=== PATIENT | female | born 1965 | race African-American/Black ===

== ENCOUNTER 2020-12-28 04:21 | Emergency (ER) | payer OTHER ==
[~2020-12-28] VITALS: Ht 167.6 cm; Wt 73.0 kg
[~2020-12-28 04:21] MED LIST: HYOS-27 SL; PROT40 PO
[2020-12-28 04:56] LABS: CLARITY URINE CLEAR (CLEAR); COLOR URINE YELLOW (YELLOW); KETONES URINE NEGATIVE (NEGATIVE); LEUKOCYTE ESTERASE URINE 1+ (NEGATIVE); NITRITE URINE POSITIVE (NEGATIVE); OCCULT BLOOD URINE NEGATIVE (NEGATIVE); PH URINE 5.5 (4.5-8.0); PROTEIN URINE NEGATIVE (NEGATIVE); SPECIFIC GRAVITY URINE 1.015 (1.005-1.030); UROBILINOGEN URINE 0.2 E.U./dL (0.2-1.0)
[2020-12-28 05:23] LABS: BASOPHILS % 0.7 % (0.0-2.0); HEMATOCRIT. 35.5 % (36.0-48.0); HEMOGLOBIN. 11.4 g/dL (12.0-16.0); MEAN CORPUSCULAR HEMOGLOBIN 25.8 pg (28.0-32.0); MEAN CORPUSCULAR VOLUME 80.6 fL (81.0-99.0); MEAN PLATELET VOLUME 8.6 fl (7.4-10.4); MONOCYTES % 6.1 % (2.0-8.0); NEUTROPHILS % 58.2 % (40.0-76.0); PLATELET 206 x1000/uL (130-400); RED BLOOD CELL COUNT 4.41 mill/uL (4.2-5.4)
[2020-12-28] MEDS: SODIUM CHLORIDE 0.9% 1,000 ML IV ONE (05:24)
[2020-12-28 05:29] VITALS: BP 148/86
[2020-12-28 05:29] LABS: CHLORIDE 118 mEq/L (98-107)
[2020-12-28] MEDS: MORPHINE SULFATE 4 MG/ML CPJ (NOT FOR IM USE) IV ONE (05:29)
[2020-12-28] MEDS: ONDANSETRON HCL 4MG/2ML INJ IV ONE (05:29)
[2020-12-28] MEDS: METOCLOPRAMIDE HCL 10MG/2ML VIAL IV ONE (06:13)
[2020-12-28] MEDS: DIPHENHYDRAMINE 50MG/ML VIAL IV ONE (06:13)
[2020-12-28] MEDS: CEFTRIAXONE 1 G PREMIX 50 ML IV ONE (06:14)
[2020-12-28] MEDS ORDERED: ACET650T37 MT (06:24)
[2020-12-28] MEDS ORDERED: CEPH500C2 MT (06:24)
[2020-12-28] MEDS ORDERED: TRAM50TA3 MT ×2 (06:24→06:26)
[2020-12-28] MEDS ORDERED: CYCL10TA7 MT (06:38)
== END 2020-12-28 07:20 | disposition home or self-care (01) ==
LOC: ER 04:21
DX: G43.909 Migraine, unspecified, not intractable, without status migrainosus (principal); N39.0 Urinary tract infection, site not specified; N12 Tubulo-interstitial nephritis, not specified as acute or chronic; Z88.6 Allergy status to analgesic agent; Z88.8 Allergy status to other drugs, medicaments and biological substances; Z79.899 Other long term (current) drug therapy
CPT/HCPCS: 36415; 80053; 81003; 85025; 85044; 87086; 96361; 96374; 96375; 99285; J0696; J1200; J2270; J2405; J2765; J7030

== ENCOUNTER 2021-02-28 11:00 | Emergency (ER) | payer MEDICAID, OTHER ==
[~2021-02-28] VITALS: Ht 162.6 cm; Wt 58.0 kg
[~2021-02-28 11:00] MED LIST changes: +ACET650T37 MT; +CEPH500C2 MT; +CYCL10TA7 MT
[2021-02-28] MEDS ORDERED: MORPHINE SULFATE 4 MG/ML CPJ (NOT FOR IM USE) IV STA (11:17)
[2021-02-28 11:57] LABS: BASOPHILS % 0.6 % (0.0-2.0); EOSINOPHILS % 0.3 % (0.0-5.0); LYMPHOCYTES % 21.9 % (20.0-50.0); MEAN CORPUSCULAR HEMOGLOBIN 27.8 pg (28.0-32.0); MEAN CORPUSCULAR VOLUME 84.8 fL (81.0-99.0); MEAN PLATELET VOLUME 8.7 fl (7.4-10.4); MONOCYTES % 6.1 % (2.0-8.0); NEUTROPHILS % 71.1 % (40.0-76.0); PLATELET 130 x1000/uL (130-400); RED BLOOD CELL COUNT 2.47 mill/uL (4.2-5.4); RED CELL DISTRIBUTION WIDTH 15.2 % (11.6-14.6)
[2021-02-28 12:02] LABS: CHLORIDE 125 mEq/L (98-107)
[2021-02-28 12:03] LABS: HEMOGLOBIN. 6.9 g/dL (12.0-16.0)
[2021-02-28] MEDS ORDERED: MORPHINE SULFATE 4 MG/ML CPJ (NOT FOR IM USE) IV ONE (13:00)
[2021-02-28] MEDS ORDERED: FENTANYL CITRATE/PF 50MCG/ML 2ML VIAL IV ONE (17:00)
[2021-02-28 20:00] VITALS: BP 139/73
[2021-02-28] MEDS ORDERED: ACETAMINOPHEN 325MG TABLET PO ONE (20:45)
== END 2021-02-28 20:50 | disposition short-term general hospital (02) ==
LOC: ER 11:00
DX: D57.1 Sickle-cell disease without crisis (principal); G40.909 Epilepsy, unspecified, not intractable, without status epilepticus; F32.9 Major depressive disorder, single episode, unspecified; M19.90 Unspecified osteoarthritis, unspecified site; G43.909 Migraine, unspecified, not intractable, without status migrainosus; Z20.822 Contact with and (suspected) exposure to COVID-19; Z88.6 Allergy status to analgesic agent
CPT/HCPCS: 36415; 71045; 72125; 80053; 83880; 84484; 85025; 85044; 85660; 86850; 86900; 86901; 86920; 87426; 93005; 96374; 96375; 96376; 99291; J2270; J3010; P9016

== ENCOUNTER 2021-03-22 11:53 | Emergency (ER) | payer MEDICAID, OTHER ==
[~2021-03-22] VITALS: Ht 172.7 cm; Wt 70.0 kg
[2021-03-22] MEDS ORDERED: MORPHINE SULFATE 4 MG/ML CPJ (NOT FOR IM USE) IV ONE (12:30)
[2021-03-22] MEDS ORDERED: METOCLOPRAMIDE HCL 10MG/2ML VIAL IV ONE (12:30)
[2021-03-22 12:59] LABS: BASOPHILS % 0.5 % (0.0-2.0); EOSINOPHILS % 1.6 % (0.0-5.0); HEMATOCRIT. 35.9 % (36.0-48.0); LYMPHOCYTES % 33.6 % (20.0-50.0); MEAN CORPUSCULAR HEMOGLOBIN 27.2 pg (28.0-32.0); MEAN CORPUSCULAR VOLUME 81.2 fL (81.0-99.0); MEAN PLATELET VOLUME 7.4 fl (7.4-10.4); MONOCYTES % 6.6 % (2.0-8.0); NEUTROPHILS % 57.7 % (40.0-76.0); PLATELET 310 x1000/uL (130-400); RED BLOOD CELL COUNT 4.42 mill/uL (4.2-5.4); RED CELL DISTRIBUTION WIDTH 15.3 % (11.6-14.6)
[2021-03-22 13:07] LABS: CHLORIDE 113 mEq/L (98-107)
[2021-03-22 13:08] LABS: HCG SCREEN NEGATIVE
[2021-03-22] MEDS ORDERED: MORPHINE SULFATE 4 MG/ML CPJ (NOT FOR IM USE) IV NR (15:30)
[2021-03-22 17:30] VITALS: BP 110/78
== END 2021-03-22 18:14 | disposition home or self-care (01) ==
LOC: ER 11:53
DX: R51.9 Headache, unspecified (principal); Z20.822 Contact with and (suspected) exposure to COVID-19; Z88.0 Allergy status to penicillin; Z88.8 Allergy status to other drugs, medicaments and biological substances; Z88.6 Allergy status to analgesic agent; Z79.899 Other long term (current) drug therapy; Z86.59 Personal history of other mental and behavioral disorders
CPT/HCPCS: 36415; 70450; 71045; 80053; 83880; 84484; 84703; 85025; 86850; 86900; 86901; 87426; 93005; 96374; 96375; 96376; 99285; J2270; J2765

== ENCOUNTER 2021-04-24 15:42 | Emergency (ER) | payer MEDICAID, OTHER ==
[~2021-04-24] VITALS: Ht 172.7 cm; Wt 68.5 kg
[2021-04-24] MEDS ORDERED: METHOCARBAMOL 500MG TABLET PO ONE (17:45)
[2021-04-24] MEDS ORDERED: MORPHINE SULFATE 4 MG/ML CPJ (NOT FOR IM USE) IV ONE (17:45)
[2021-04-24] MEDS ORDERED: MORPHINE SULFATE 2 MG/ML CPJ (NOT FOR IM USE) IV NR ×2 (18:50→21:53)
[2021-04-24] MEDS ORDERED: HYDROCODONE/ACETAMINOPHEN 5/325MG TABLET PO ONE (19:30)
[2021-04-24] MEDS ORDERED: CYCLOBENZAPRINE 10MG TABLET PO ONE (19:30)
[2021-04-24] MEDS ORDERED: KETOROLAC 60MG/2ML VIAL IM ONE (21:00)
[2021-04-24] MEDS ORDERED: HYDR-4001 MT (21:37)
[2021-04-24] MEDS ORDERED: CYCL10TA7 MT (21:37)
[2021-04-24 22:12] VITALS: BP 160/85
== END 2021-04-24 22:13 | disposition home or self-care (01) ==
LOC: ER 15:42
DX: M54.40 Lumbago with sciatica, unspecified side (principal); M19.90 Unspecified osteoarthritis, unspecified site; F31.9 Bipolar disorder, unspecified; G43.909 Migraine, unspecified, not intractable, without status migrainosus; R56.9 Unspecified convulsions; D57.1 Sickle-cell disease without crisis; Z88.0 Allergy status to penicillin; Z88.6 Allergy status to analgesic agent; Z88.8 Allergy status to other drugs, medicaments and biological substances
CPT/HCPCS: 72131; 96372; 96374; 96376; 99285; J1885; J2270

== ENCOUNTER 2021-08-02 09:37 | Emergency (ER) | payer MEDICAID, OTHER ==
[~2021-08-02] VITALS: Ht 172.7 cm; Wt 68.0 kg
[~2021-08-02 09:37] MED LIST changes: +HYDR-4001 MT
[2021-08-02] MEDS ORDERED: ONDANSETRON 4MG ODT PO SCH (10:17)
[2021-08-02] MEDS ORDERED: ACETAMINOPHEN 325MG TABLET PO SCH (10:17)
[2021-08-02 11:14] LABS: BASOPHILS % 0.6 % (0.0-2.0); HEMATOCRIT. 38.3 % (36.0-48.0); HEMOGLOBIN. 12.4 g/dL (12.0-16.0); LYMPHOCYTES % 28.3 % (20.0-50.0); MEAN CORPUSCULAR HEMOGLOBIN 25.6 pg (28.0-32.0); MEAN CORPUSCULAR VOLUME 78.7 fL (81.0-99.0); MEAN PLATELET VOLUME 8.4 fl (7.4-10.4); MONOCYTES % 4.4 % (2.0-8.0); NEUTROPHILS % 65.7 % (40.0-76.0); PLATELET 208 x1000/uL (130-400); RED BLOOD CELL COUNT 4.86 mill/uL (4.2-5.4); RED CELL DISTRIBUTION WIDTH 13.7 % (11.6-14.6)
[2021-08-02 11:22] LABS: CHLORIDE 113 mEq/L (98-107)
[2021-08-02] MEDS ORDERED: SUMATRIPTAN SUCCINATE 25MG TABLET PO ONE (12:00)
[2021-08-02] MEDS ORDERED: SODIUM CHLORIDE 0.9% 1,000 ML IV ONE (12:00)
[2021-08-02] MEDS ORDERED: MORPHINE SULFATE 4 MG/ML CPJ (NOT FOR IM USE) IV ONE ×2 (12:00→14:30)
[2021-08-02 14:45] VITALS: BP 159/61
== END 2021-08-02 16:02 | disposition home or self-care (01) ==
LOC: ER 09:37
DX: U07.1 COVID-19 (principal); G43.909 Migraine, unspecified, not intractable, without status migrainosus; Z88.0 Allergy status to penicillin; Z88.6 Allergy status to analgesic agent; Z88.2 Allergy status to sulfonamides; Z88.8 Allergy status to other drugs, medicaments and biological substances; Z79.899 Other long term (current) drug therapy
CPT/HCPCS: 36415; 71045; 80053; 84484; 85025; 93005; 96374; 96376; 99285; J2270; J7030; Q0162

== ENCOUNTER 2021-08-03 14:08 | Inpatient (IN) | payer OTHER ==
[~2021-08-03] VITALS: Ht 165.1 cm; Wt 67.8 kg
[2021-08-03] MEDS ORDERED: METOCLOPRAMIDE HCL 10MG/2ML VIAL IV NR (14:30)
[2021-08-03] MEDS ORDERED: ACETAMINOPHEN 325MG TABLET PO NR (14:30)
[2021-08-03] MEDS ORDERED: SODIUM CHLORIDE 0.9% 1,000 ML IV NR (14:30)
[2021-08-03] MEDS ORDERED: DIPHENHYDRAMINE 50MG/ML VIAL IV NR (14:30)
[2021-08-03] MEDS ORDERED: MORPHINE SULFATE 4 MG/ML CPJ (NOT FOR IM USE) IV ONE (15:15)
[2021-08-03 17:14] LABS: BASOPHILS % 1.6 % (0.0-2.0); EOSINOPHILS % 1.1 % (0.0-5.0); HEMATOCRIT. 40.1 % (36.0-48.0); HEMOGLOBIN. 12.5 g/dL (12.0-16.0); LYMPHOCYTES % 40.8 % (20.0-50.0); MEAN CORPUSCULAR VOLUME 79.8 fL (81.0-99.0); MEAN PLATELET VOLUME 8.1 fl (7.4-10.4); NEUTROPHILS % 48.5 % (40.0-76.0); PLATELET 227 x1000/uL (130-400); RED BLOOD CELL COUNT 5.02 mill/uL (4.2-5.4); RED CELL DISTRIBUTION WIDTH 13.9 % (11.6-14.6)
[2021-08-03] MEDS ORDERED: MORPHINE SULFATE 4 MG/ML CPJ (NOT FOR IM USE) IV NR (17:30)
[2021-08-03] MEDS ORDERED: NALOXONE HCL 0.4MG/ML VIAL IV PRN (21:15)
[2021-08-03] MEDS ORDERED: HYDROCODONE/ACETAMINOPHEN 10/325MG TABLET PO PRN (21:15)
[2021-08-03] MEDS ORDERED: MORPHINE SULFATE 2 MG/ML CPJ (NOT FOR IM USE) IV NR (21:30)
[2021-08-03] MEDS: OXYCODONE HCL/ACETAMINOPHEN 5/325MG TABLET PO PRN (21:39)
[2021-08-04] MEDS ORDERED: LORAZEPAM 2MG/ML CPJ IV PRN (00:45)
[2021-08-04] MEDS ORDERED: NALOXONE HCL 0.4MG/ML VIAL IV PRN (03:30)
[2021-08-04] MEDS: OXYCODONE HCL/ACETAMINOPHEN 5/325MG TABLET PO PRN ×2 (03:46→18:08)
[2021-08-04] MEDS: MORPHINE SULFATE 4 MG/ML CPJ (NOT FOR IM USE) IV PRN ×2 (03:47→08:25)
[2021-08-04 10:10] VITALS: BP 157/84
[2021-08-04 11:51] VITALS: BP 157/84
[2021-08-04 12:00] VITALS: BP 154/81
[2021-08-04] MEDS ORDERED: SUMA100T PO (12:23)
[2021-08-04] MEDS: FOLIC ACID 1MG TABLET PO SCH (13:44)
[2021-08-04] MEDS ORDERED: MORPHINE SULFATE 2 MG/ML CPJ (NOT FOR IM USE) IV PRN (13:54)
[2021-08-04] MEDS ORDERED: SUMATRIPTAN SUCCINATE 6MG/0.5ML VIAL SUBCUT SCH (14:00)
[2021-08-04 16:00] VITALS: BP 152/77
[2021-08-04 19:03] LABS: CHLORIDE 111 mEq/L (98-107)
[2021-08-04 20:00] VITALS: BP 146/80
[2021-08-04] MEDS: MORPHINE SULFATE 2 MG/ML CPJ (NOT FOR IM USE) IV PRN (20:08)
[2021-08-05] VITALS: BP 138/80
[2021-08-05] MEDS: OXYCODONE HCL/ACETAMINOPHEN 5/325MG TABLET PO PRN ×4 (00:42→23:09)
[2021-08-05 04:00] VITALS: BP 132/64
[2021-08-05 04:16] LABS: CLARITY URINE CLEAR (CLEAR); COLOR URINE YELLOW (YELLOW); KETONES URINE NEGATIVE (NEGATIVE); LEUKOCYTE ESTERASE URINE NEGATIVE (NEGATIVE); NITRITE URINE NEGATIVE (NEGATIVE); OCCULT BLOOD URINE NEGATIVE (NEGATIVE); PH URINE 6.5 (4.5-8.0); PROTEIN URINE NEGATIVE (NEGATIVE); SPECIFIC GRAVITY URINE 1.007 (1.005-1.030); UROBILINOGEN URINE 0.2 E.U./dL (0.2-1.0)
[2021-08-05 04:29] LABS: *AMPHETAMINES SCREEN URINE NEGATIVE (NEGATIVE); *BARBITURATES SCREEN URINE NEGATIVE (NEGATIVE); *BENZODIAZEPINES SCREEN URINE NEGATIVE (NEGATIVE); *COCAINE SCREEN URINE NEGATIVE (NEGATIVE)
[2021-08-05 04:30] LABS: CANNABINOID URINE SCREEN PRESUMTIVE POSITIVE (NEGATIVE); METHADONE URINE SCREEN NEGATIVE (NEGATIVE); OPIATES URINE SCREEN PRESUMTIVE POSITIVE (NEGATIVE); PHENCYCLIDINE URINE SCREEN NEGATIVE (NEGATIVE)
[2021-08-05] MEDS: MORPHINE SULFATE 2 MG/ML CPJ (NOT FOR IM USE) IV PRN ×2 (04:52→10:15)
[2021-08-05 08:00] VITALS: BP 158/87
[2021-08-05] MEDS ORDERED: SUMATRIPTAN SUCCINATE 6MG/0.5ML VIAL SUBCUT SCH (09:00)
[2021-08-05] MEDS: FOLIC ACID 1MG TABLET PO SCH (09:02)
[2021-08-05] MEDS: ONDANSETRON HCL 4MG/2ML INJ IV PRN ×2 (09:02→18:45)
[2021-08-05 12:00] VITALS: BP 146/77
[2021-08-05 16:00] VITALS: BP 136/79
[2021-08-05 20:00] VITALS: BP 133/76
[2021-08-05] MEDS: HYDROCODONE/ACETAMINOPHEN 10/325MG TABLET PO PRN (20:55)
[2021-08-06] VITALS: BP 141/80
[2021-08-06 04:00] VITALS: BP 136/78
[2021-08-06] MEDS: OXYCODONE HCL/ACETAMINOPHEN 5/325MG TABLET PO PRN (06:42)
[2021-08-06 08:00] VITALS: BP 124/82
[2021-08-06] MEDS: FOLIC ACID 1MG TABLET PO SCH (08:09)
[2021-08-06] MEDS: HYDROCODONE/ACETAMINOPHEN 10/325MG TABLET PO PRN (09:53)
[2021-08-06 12:00] VITALS: BP 131/69
[2021-08-06 12:40] VITALS: BP 131/69
[2021-08-08 10:08] LABS: HGB S 27.9 % (0.0)
== END 2021-08-06 12:45 | disposition home or self-care (01) | DRG 663 ==
LOC: ER 14:15 → MICUSO 18:03 → 6EST 08-04 10:05
PROVIDERS: ADMIT Internal Medicine; ATTEND Internal Medicine
DX: D57.1 Sickle-cell disease without crisis (principal); E87.8 Other disorders of electrolyte and fluid balance, not elsewhere classified; F31.9 Bipolar disorder, unspecified; G43.909 Migraine, unspecified, not intractable, without status migrainosus; M19.90 Unspecified osteoarthritis, unspecified site; G40.909 Epilepsy, unspecified, not intractable, without status epilepticus; I10 Essential (primary) hypertension; Z88.0 Allergy status to penicillin; Z88.6 Allergy status to analgesic agent; Z88.8 Allergy status to other drugs, medicaments and biological substances; Z79.899 Other long term (current) drug therapy
CPT/HCPCS: 36415; 80048; 80305; 81003; 83021; 85025; 85044; 85660; 87426; 97116; 97162; 99285; J1200; J2060; J2270; J2405; J2765; J3030; J7040

== ENCOUNTER 2022-10-08 11:36 | Emergency (ER) | payer MEDICAID, OTHER ==
[~2022-10-08] VITALS: Ht 167.6 cm; Wt 68.0 kg
[~2022-10-08 11:36] MED LIST changes: +ACET-3163 MT; -ACET650T37 MT; +CYCL10TA21 MT; -CYCL10TA7 MT; +SUMA100T PO
[2022-10-08] MEDS ORDERED: MORPHINE SULFATE 4 MG/ML CPJ (NOT FOR IM USE) IV STA (12:58)
[2022-10-08] MEDS ORDERED: ONDANSETRON HCL 4MG/2ML INJ IV STA (12:58)
[2022-10-08] MEDS ORDERED: SODIUM CHLORIDE 0.9% 1,000 ML IV ONE (13:00)
[2022-10-08 14:08] LABS: BASOPHILS % 0.4 % (0.0-2.0); EOSINOPHILS % 1.1 % (0.0-5.0); HEMATOCRIT. 38.6 % (36.0-48.0); HEMOGLOBIN. 12.4 g/dL (12.0-16.0); LYMPHOCYTES % 22.5 % (20.0-50.0); MEAN CORPUSCULAR HEMOGLOBIN 25.2 pg (28.0-32.0); MEAN CORPUSCULAR VOLUME 78.5 fL (81.0-99.0); MEAN PLATELET VOLUME 8.6 fl (7.4-10.4); MONOCYTES % 7.6 % (2.0-8.0); NEUTROPHILS % 68.4 % (40.0-76.0); PLATELET 282 x1000/uL (130-400); RED BLOOD CELL COUNT 4.92 mill/uL (4.2-5.4); RED CELL DISTRIBUTION WIDTH 15.2 % (11.6-14.6)
[2022-10-08 16:40] LABS: CHLORIDE 107 mEq/L (98-107)
[2022-10-08] MEDS ORDERED: ONDANSETRON HCL 4MG/2ML INJ IV NR (16:45)
[2022-10-08] MEDS ORDERED: MORPHINE SULFATE 4 MG/ML CPJ (NOT FOR IM USE) IV NR (16:45)
[2022-10-08 16:53] LABS: CLARITY URINE CLEAR (CLEAR); COLOR URINE YELLOW (YELLOW); KETONES URINE NEGATIVE (NEGATIVE); LEUKOCYTE ESTERASE URINE NEGATIVE (NEGATIVE); NITRITE URINE NEGATIVE (NEGATIVE); OCCULT BLOOD URINE NEGATIVE (NEGATIVE); PROTEIN URINE NEGATIVE (NEGATIVE); SPECIFIC GRAVITY URINE 1.008 (1.005-1.030); UROBILINOGEN URINE 0.2 E.U./dL (0.2-1.0)
[2022-10-08 17:07] VITALS: BP 161/97
[2022-10-08] MEDS ORDERED: HYDR-4001 MT (18:03)
== END 2022-10-08 18:23 | disposition home or self-care (01) ==
LOC: ER 11:36
DX: R07.89 Other chest pain (principal); R51.9 Headache, unspecified; M54.50 Low back pain, unspecified; Z79.899 Other long term (current) drug therapy
CPT/HCPCS: 36415; 71045; 72100; 80053; 81003; 83880; 84484; 85025; 85044; 93005; 96361; 96374; 96375; 99285; J2270; J2405; J7030; Z7610

== ENCOUNTER 2023-03-26 09:38 | Inpatient (IN) | payer OTHER ==
[~2023-03-26] VITALS: Ht 162.6 cm; Wt 66.2 kg
[2023-03-26] MEDS ORDERED: MORPHINE SULFATE 4 MG/ML CPJ (NOT FOR IM USE) IV ONE ×2 (09:45→11:15)
[2023-03-26] MEDS ORDERED: MORPHINE SULFATE 10 MG/ML CPJ IM ONE ×2 (10:15→11:00)
[2023-03-26 11:44] LABS: CHLORIDE 111 mEq/L (98-107); INDEX HEMOLYSI 2 (1-3); INDEX ICTERIC 1 (1-4); INDEX LIPEMIC 1 (1-3); POTASSIUM 4.2 mEq/L (3.5-5.1); SODIUM 140 mEq/L (136-145)
[2023-03-26 11:51] LABS: ALANINE AMINOTRANSFERASE 19 IU/L (13-61); ALBUMIN 3.6 g/dL (3.4-5.0); ASPARTATE AMINOTRANSFERASE 12 IU/L (15-37); BILIRUBIN TOTAL 0.4 mg/dL (0.1-1.0); CALCIUM 9.1 mg/dL (8.5-10.1); CARBON DIOXIDE 27 mEq/L (21-32); CREATININE 0.8 mg/dL (0.6-1.3); GLUCOSE 84 mg/dL (70-105); PROTEIN TOTAL 7.3 g/dL (6.0-8.3); UREA NITROGEN BLOOD 7 mg/dL (7-21)
[2023-03-26 12:35] LABS: CLARITY URINE CLOUDY (CLEAR); COLOR URINE YELLOW (YELLOW); GLUCOSE URINE NEGATIVE (NEGATIVE); KETONES URINE NEGATIVE (NEGATIVE); LEUKOCYTE ESTERASE URINE NEGATIVE (NEGATIVE); NITRITE URINE NEGATIVE (NEGATIVE); OCCULT BLOOD URINE NEGATIVE (NEGATIVE); PROTEIN URINE NEGATIVE (NEGATIVE); SPECIFIC GRAVITY URINE 1.011 (1.005-1.030)
[2023-03-26 12:39] LABS: BACTERIA URINE 2+; SQUAMOUS EPITHELIAL CELL URINE 2+ /lpf (RARE/1+); YEAST URINE NONE SEEN
[2023-03-26 12:43] LABS: BASOPHILS % 0.5 % (0.0-2.0); DIFFERENTIAL COMMENT 0; EOSINOPHILS % 0.6 % (0.0-5.0); HEMATOCRIT. 36.9 % (36.0-48.0); HEMOGLOBIN. 11.6 g/dL (12.0-16.0); LYMPHOCYTES % 17.8 % (20.0-50.0); MEAN CORPUSCULAR HGB CONC 31.6 g/dL (31.0-37.0); MEAN CORPUSCULAR VOLUME 79.1 fL (81.0-99.0); MEAN PLATELET VOLUME 9.2 fl (7.4-10.4); MONOCYTES % 5.4 % (2.0-8.0); NEUTROPHILS % 75.7 % (40.0-76.0); PLATELET 269 x1000/uL (130-400); RED BLOOD CELL COUNT 4.67 mill/uL (4.2-5.4); RED CELL DISTRIBUTION WIDTH 15.2 % (11.6-14.6); WHITE BLOOD COUNT 11.1 x1000/uL (4.5-11.0)
[2023-03-26 13:08] LABS: RBC URINE 0-2 /hpf (0-2)
[2023-03-26 13:50] LABS: HCG SCREEN NEGATIVE
[2023-03-26] MEDS ORDERED: MORPHINE SULFATE 2 MG/ML CPJ (NOT FOR IM USE) IV NR (15:15)
[2023-03-27] MEDS ORDERED: CEFTRIAXONE 1GM PREMIX 50 ML IV SCH (00:15)
[2023-03-27] MEDS ORDERED: NALOXONE HCL 0.4MG/ML VIAL IV PRN (00:30)
[2023-03-27] MEDS: HYDROCODONE/ACETAMINOPHEN 10/325MG TABLET PO PRN ×3 (01:26→11:38)
[2023-03-27] MEDS: ONDANSETRON HCL 4MG/2ML INJ IV PRN ×2 (03:21→08:59)
[2023-03-27 05:15] VITALS: BP 143/93; PULSE 78; RESP 18; TEMP 97.9
[2023-03-27] MEDS: PANTOPRAZOLE 40MG DR TABLET PO SCH (06:53)
[2023-03-27 07:45] LABS: BASOPHILS % 0.2 % (0.0-2.0); DIFFERENTIAL COMMENT 0; EOSINOPHILS % 1.5 % (0.0-5.0); HEMATOCRIT. 37.6 % (36.0-48.0); HEMOGLOBIN. 12.3 g/dL (12.0-16.0); LYMPHOCYTES % 31.3 % (20.0-50.0); MEAN CORPUSCULAR HEMOGLOBIN 25.9 pg (28.0-32.0); MEAN CORPUSCULAR HGB CONC 32.8 g/dL (31.0-37.0); MEAN PLATELET VOLUME 9.1 fl (7.4-10.4); MONOCYTES % 8.9 % (2.0-8.0); NEUTROPHILS % 58.1 % (40.0-76.0); PLATELET 248 x1000/uL (130-400); RED BLOOD CELL COUNT 4.77 mill/uL (4.2-5.4); RED CELL DISTRIBUTION WIDTH 15.3 % (11.6-14.6); WHITE BLOOD COUNT 8.5 x1000/uL (4.5-11.0)
[2023-03-27 08:21] LABS: CHLORIDE 108 mEq/L (98-107); INDEX HEMOLYSI 1 (1-3); INDEX ICTERIC 1 (1-4); INDEX LIPEMIC 1 (1-3); POTASSIUM 4.1 mEq/L (3.5-5.1); SODIUM 139 mEq/L (136-145)
[2023-03-27 08:33] LABS: ALANINE AMINOTRANSFERASE 15 IU/L (13-61); ALBUMIN 3.3 g/dL (3.4-5.0); ASPARTATE AMINOTRANSFERASE 12 IU/L (15-37); BILIRUBIN TOTAL 0.5 mg/dL (0.1-1.0); CALCIUM 8.5 mg/dL (8.5-10.1); CARBON DIOXIDE 27 mEq/L (21-32); CHOLESTEROL 156 mg/dL (<200); CREATININE 0.8 mg/dL (0.6-1.3); GLUCOSE 73 mg/dL (70-105); HDL CHOLESTEROL 61 mg/dL (40-59); LDL CHOLESTEROL 89 mg/dL (5-100); TRIGLYCERIDE 85 mg/dL (0-150); UREA NITROGEN BLOOD 10 mg/dL (7-21)
[2023-03-27] MEDS ORDERED: CEFTRIAXONE 1,000 MG in DEXTROSE 5% WATER 50 ML IV SCH (09:00)
[2023-03-27] MEDS: OXYCODONE HCL/ACETAMINOPHEN 5/325MG TABLET PO PRN ×3 (14:18→23:29)
[2023-03-28] MEDS: OXYCODONE HCL/ACETAMINOPHEN 5/325MG TABLET PO PRN ×2 (05:53→10:30)
[2023-03-28] MEDS: PANTOPRAZOLE 40MG DR TABLET PO SCH (06:34)
[2023-03-28 10:30] VITALS: RESP 17
[2023-03-28 11:05] VITALS: BP 149/92; PULSE 90; TEMP 97.7; O2SAT 100
== END 2023-03-28 12:32 | disposition home or self-care (01) | DRG 347 ==
LOC: ER 09:38 → 6EST 12:39 → EDBEDREQ 12:53 → EDBEDREQTM 12:53
PROVIDERS: ADMIT Internal Medicine; ATTEND Internal Medicine
DX: M48.02 Spinal stenosis, cervical region (principal); G40.909 Epilepsy, unspecified, not intractable, without status epilepticus; M48.061 Spinal stenosis, lumbar region without neurogenic claudication; G89.29 Other chronic pain; G43.909 Migraine, unspecified, not intractable, without status migrainosus; Z88.0 Allergy status to penicillin; Z88.6 Allergy status to analgesic agent; Z88.8 Allergy status to other drugs, medicaments and biological substances
CPT/HCPCS: 36415; 72100; 72141; 72148; 80053; 80061; 81003; 83036; 84703; 85025; 99285; J0696; J2270; J2405; J7060

== ENCOUNTER 2023-06-18 12:51 | Emergency (ER) | payer OTHER ==
[~2023-06-18] VITALS: Ht 165.1 cm; Wt 75.0 kg
[~2023-06-18 12:51] MED LIST changes: +AMIT50TA4 PO; -CEPH500C2 MT; -CYCL10TA21 MT; +FERR325T30 PO; +HYDR-4009 PO; +QUET100T34 PO
[2023-06-18 13:12] VITALS: BP 174/116; PULSE 97; RESP 18; O2SAT 99
[2023-06-18] MEDS ORDERED: ACETAMINOPHEN 325MG TABLET PO ONE (13:30)
[2023-06-18 13:49] VITALS: TEMP 98.3
== END 2023-06-18 20:28 | disposition home or self-care (01) ==
LOC: ER 12:58
DX: G89.18 Other acute postprocedural pain (principal); M50.90 Cervical disc disorder, unspecified, unspecified cervical region; Z79.899 Other long term (current) drug therapy; Z88.0 Allergy status to penicillin; Z88.6 Allergy status to analgesic agent; Z86.59 Personal history of other mental and behavioral disorders; Z98.890 Other specified postprocedural states; Z88.1 Allergy status to other antibiotic agents; Z88.2 Allergy status to sulfonamides; Z88.8 Allergy status to other drugs, medicaments and biological substances
CPT/HCPCS: 72141; 99284

== ENCOUNTER 2023-07-17 11:42 | Emergency (ER) | payer OTHER ==
[~2023-07-17] VITALS: Ht 172.7 cm; Wt 79.0 kg
[2023-07-17 11:48] VITALS: TEMP 98.5; O2SAT 100
[2023-07-17 12:45] VITALS: BP 146/86; PULSE 100; RESP 20
[2023-07-17] MEDS ORDERED: HYDROCODONE/ACETAMINOPHEN 7.5/325MG TABLET PO ONE (12:45)
[2023-07-17] MEDS ORDERED: HYDR-4001 MT (13:41)
== END 2023-07-17 14:53 | disposition home or self-care (01) ==
LOC: ER 13:21
DX: S22.31XA Fracture of one rib, right side, initial encounter for closed fracture (principal); S00.83XA Contusion of other part of head, initial encounter; S09.90XA Unspecified injury of head, initial encounter; W18.30XA Fall on same level, unspecified, initial encounter; Y93.89 Activity, other specified; Y92.89 Other specified places as the place of occurrence of the external cause; Y99.8 Other external cause status; Z88.0 Allergy status to penicillin; Z88.8 Allergy status to other drugs, medicaments and biological substances; Z88.6 Allergy status to analgesic agent; Z79.899 Other long term (current) drug therapy; Z98.890 Other specified postprocedural states; Z86.59 Personal history of other mental and behavioral disorders
CPT/HCPCS: 71101; 70450; 70486; 99284; Z7610

== ENCOUNTER 2023-08-14 19:14 | Emergency (ER) | payer OTHER ==
[~2023-08-14] VITALS: Ht 165.1 cm; Wt 74.5 kg
[2023-08-14 20:50] VITALS: BP 140/70; PULSE 96; RESP 16
[2023-08-14] MEDS ORDERED: LIDOCAINE HCL/PF 1% 10 MG/ML 5ML VIAL INFIL ONE (21:30)
[2023-08-14] MEDS ORDERED: ACETAMINOPHEN 500MG TABLET PO ONE (21:30)
[2023-08-14] MEDS ORDERED: BACITRACIN ZINC OINT UDPKT TOP ONE (21:30)
[2023-08-14 22:15] VITALS: TEMP 98.4
[2023-08-14] MEDS ORDERED: CYCLOBENZAPRINE 10MG TABLET PO ONE (22:15)
[2023-08-14] MEDS: ACETAMINOPHEN 500MG TABLET PO ONE (22:15)
[2023-08-14] MEDS ORDERED: ACET-2708 MT (22:18)
[2023-08-14] MEDS ORDERED: LIDO700A15 TP (22:18)
[2023-08-14] MEDS ORDERED: CYCLOBENZAPRINE 10MG TABLET PO NR (23:00)
== END 2023-08-15 01:30 | disposition home or self-care (01) ==
LOC: ER 19:14
DX: G89.18 Other acute postprocedural pain (principal); M79.602 Pain in left arm; G43.909 Migraine, unspecified, not intractable, without status migrainosus; R56.9 Unspecified convulsions; Z79.899 Other long term (current) drug therapy
CPT/HCPCS: 99282; 99283

== ENCOUNTER 2023-10-20 14:04 | Emergency (ER) | payer OTHER ==
[~2023-10-20] VITALS: Ht 162.6 cm; Wt 70.5 kg
[~2023-10-20 14:04] MED LIST changes: +ACET-2708 MT; +LIDO700A15 TP
[2023-10-20 14:11] VITALS: TEMP 98.5; O2SAT 100
[2023-10-20 15:42] LABS: CLARITY URINE CLEAR (CLEAR); COLOR URINE YELLOW (YELLOW); GLUCOSE URINE NEGATIVE (NEGATIVE); KETONES URINE NEGATIVE (NEGATIVE); LEUKOCYTE ESTERASE URINE NEGATIVE (NEGATIVE); NITRITE URINE NEGATIVE (NEGATIVE); OCCULT BLOOD URINE NEGATIVE (NEGATIVE); PROTEIN URINE NEGATIVE (NEGATIVE); SPECIFIC GRAVITY URINE 1.004 (1.005-1.030); UROBILINOGEN URINE 0.2 E.U./dL (0.2-1.0)
[2023-10-20 17:08] LABS: BASOPHILS % 0.7 % (0.0-2.0); DIFFERENTIAL COMMENT 0; EOSINOPHILS % 0.8 % (0.0-5.0); LYMPHOCYTES % 43.5 % (20.0-50.0); MEAN CORPUSCULAR HEMOGLOBIN 24.8 pg (28.0-32.0); MEAN CORPUSCULAR VOLUME 80.2 fL (81.0-99.0); MEAN PLATELET VOLUME 8.8 fl (7.4-10.4); MONOCYTES % 5.4 % (2.0-8.0); NEUTROPHILS % 49.6 % (40.0-76.0); PLATELET 254 x1000/uL (130-400); RED BLOOD CELL COUNT 5.24 mill/uL (4.2-5.4); RED CELL DISTRIBUTION WIDTH 16.4 % (11.6-14.6); WHITE BLOOD COUNT 5.2 x1000/uL (4.5-11.0)
[2023-10-20 17:27] LABS: ALANINE AMINOTRANSFERASE 10 IU/L (10-49); ALBUMIN 4.6 g/dL (3.2-4.8); ASPARTATE AMINOTRANSFERASE 19 IU/L (<34); BILIRUBIN TOTAL 0.4 mg/dL (0.1-1.0); CALCIUM 9.1 mg/dL (8.7-10.4); CARBON DIOXIDE 23 mEq/L (21-32); CHLORIDE 107 mEq/L (98-107); CREATININE 0.9 mg/dL (0.6-1.0); GLUCOSE 65 mg/dL (70-105); POTASSIUM 4.2 mEq/L (3.5-5.1); PROTEIN TOTAL 7.3 g/dL (6.0-8.3); SODIUM 138 mEq/L (136-145); UREA NITROGEN BLOOD 8 mg/dL (9-23)
[2023-10-20] MEDS ORDERED: OXYCODONE HCL/ACETAMINOPHEN 5/325MG TABLET PO ONE (19:00)
[2023-10-20] MEDS: ONDANSETRON 4MG ODT PO ONE (20:42)
[2023-10-20 21:48] VITALS: BP 126/84; PULSE 78; RESP 18
[2023-10-20] MEDS: OXYCODONE HCL/ACETAMINOPHEN 5/325MG TABLET PO NR (21:48)
[2023-10-20] MEDS: SODIUM CHLORIDE 0.9% 1,000 ML IV ONE (22:08)
[2023-10-20] MEDS ORDERED: LIDO700A15 TP (22:29)
[2023-10-20] MEDS ORDERED: ONDA4TAB50 MT (22:29)
[2023-10-20] MEDS ORDERED: HYDR-4001 MT (22:29)
== END 2023-10-20 23:35 | disposition home or self-care (01) ==
LOC: ER 14:11
DX: G43.909 Migraine, unspecified, not intractable, without status migrainosus (principal); F31.9 Bipolar disorder, unspecified; D57.1 Sickle-cell disease without crisis; Z98.890 Other specified postprocedural states; Z88.0 Allergy status to penicillin; Z88.6 Allergy status to analgesic agent; Z88.8 Allergy status to other drugs, medicaments and biological substances
CPT/HCPCS: 80053; 81003; 85025; 36415; 71045; 96360; 99284; Q0162; J7030; Z7610 ×2; C1893

== ENCOUNTER 2023-11-15 14:26 | Emergency (ER) | payer OTHER ==
[~2023-11-15] VITALS: Ht 162.6 cm; Wt 72.0 kg
[~2023-11-15 14:26] MED LIST changes: +ONDA4TAB50 MT
[2023-11-15 14:37] VITALS: TEMP 97.9; O2SAT 99
[2023-11-15] MEDS ORDERED: LIDO700A15 TP (17:14)
[2023-11-15] MEDS ORDERED: TOPUD MT (17:14)
[2023-11-15] MEDS: ACETAMINOPHEN 325MG TABLET PO ONE (17:39)
[2023-11-15] MEDS ORDERED: HYDR-4001 MT ×2 (17:43→17:47)
[2023-11-15] MEDS: ONDANSETRON 4MG ODT PO ONE (18:00)
[2023-11-15] MEDS: MORPHINE SULFATE 4 MG/ML INJ (FOR IV/IM USE) IM ONE (18:00)
[2023-11-15 18:30] VITALS: BP 115/63; PULSE 72; RESP 19
== END 2023-11-15 20:21 | disposition home or self-care (01) ==
LOC: ER 14:31
DX: S09.90XA Unspecified injury of head, initial encounter (principal); M54.6 Pain in thoracic spine; M25.552 Pain in left hip; F31.9 Bipolar disorder, unspecified; G43.909 Migraine, unspecified, not intractable, without status migrainosus; R56.9 Unspecified convulsions; W18.39XA Other fall on same level, initial encounter; Y93.89 Activity, other specified; Y92.89 Other specified places as the place of occurrence of the external cause; Y99.8 Other external cause status
CPT/HCPCS: 99285; 70450; 72170; 73030; 73080; 73562; 71250; 96372; Q0162; J2270

== ENCOUNTER 2024-02-21 20:29 | Inpatient (IN) | payer OTHER ==
[~2024-02-21] VITALS: Ht 162.6 cm; Wt 74.4 kg
[~2024-02-21 20:29] MED LIST changes: -HYDR-4001 MT; +TIZA-204 PO; +TOPUD MT
[2024-02-21] MEDS ORDERED: MORPHINE SULFATE 4 MG/ML INJ (FOR IV/IM USE) IM ONE (22:30)
[2024-02-21] MEDS ORDERED: KETOROLAC 15MG/ML VIAL IV ONE (22:30)
[2024-02-21 23:19] LABS: BASOPHILS % 0.4 % (0.0-2.0); EOSINOPHILS % 0.5 % (0.0-5.0); HEMATOCRIT. 39.3 % (36.0-48.0); HEMOGLOBIN. 12.2 g/dL (12.0-16.0); LYMPHOCYTES % 44.6 % (20.0-50.0); MEAN CORPUSCULAR HEMOGLOBIN 25.3 pg (28.0-32.0); MEAN CORPUSCULAR HGB CONC 31.1 g/dL (31.0-37.0); MEAN CORPUSCULAR VOLUME 81.5 fL (81.0-99.0); MEAN PLATELET VOLUME 8.2 fl (7.4-10.4); MONOCYTES % 12.6 % (2.0-8.0); NEUTROPHILS % 41.9 % (40.0-76.0); PLATELET 257 x1000/uL (130-400); RED BLOOD CELL COUNT 4.82 mill/uL (4.2-5.4); WHITE BLOOD COUNT 4.2 x1000/uL (4.5-11.0)
[2024-02-21 23:24] LABS: CHLORIDE 112 mEq/L (98-107); POTASSIUM 3.8 mEq/L (3.5-5.1); SODIUM 140 mEq/L (136-145)
[2024-02-21 23:25] LABS: CARBON DIOXIDE 22 mEq/L (21-32)
[2024-02-21 23:26] LABS: CALCIUM 9.2 mg/dL (8.7-10.4)
[2024-02-21 23:30] LABS: CREATININE 0.8 mg/dL (0.6-1.0); GLUCOSE 93 mg/dL (70-105)
[2024-02-21 23:31] LABS: UREA NITROGEN BLOOD 8 mg/dL (9-23)
[2024-02-21 23:32] LABS: ALANINE AMINOTRANSFERASE 12 IU/L (10-49); ALBUMIN 4.4 g/dL (3.2-4.8); ASPARTATE AMINOTRANSFERASE 18 IU/L (<34)
[2024-02-21 23:33] LABS: BILIRUBIN TOTAL < 0.2 mg/dL (0.1-1.0); PROTEIN TOTAL 6.9 g/dL (6.0-8.3)
[2024-02-21 23:37] LABS: BILIRUBIN DIRECT < 0.1 mg/dL (<=3.0)
[2024-02-22] MEDS: SODIUM CHLORIDE 0.9% 1,000 ML IV ONE ×2 (02:10→08:12)
[2024-02-22] MEDS: KETOROLAC 15MG/ML VIAL IV NR (02:15)
[2024-02-22] MEDS: MORPHINE SULFATE 4 MG/ML INJ (FOR IV/IM USE) IM NR (02:15)
[2024-02-22] MEDS ORDERED: NALOXONE HCL 0.4MG/ML VIAL IV PRN (05:45)
[2024-02-22] MEDS: MORPHINE SULFATE 2 MG/ML INJ (NOT FOR IM USE) IV NR (13:19)
[2024-02-22] MEDS ORDERED: AMIT150T PO (15:36)
[2024-02-22] MEDS ORDERED: VERA180C2 PO (15:36)
[2024-02-22] MEDS ORDERED: CARB100C9 PO (15:36)
[2024-02-22] MEDS ORDERED: CLONIDINE 0.1MG TABLET PO PRN (15:45)
[2024-02-22] MEDS ORDERED: ACETAMINOPHEN 325MG TABLET PO PRN (15:45)
[2024-02-22 16:00] VITALS: BP 156/94; PULSE 70; RESP 20; TEMP 36.6696; O2SAT 100
[2024-02-22 16:48] VITALS: BP 154/87; PULSE 70; RESP 18; TEMP 37.0296
[2024-02-22] MEDS: ENOXAPARIN 40MG/0.4ML SYR SUBCUT SCH (17:39)
[2024-02-22 20:00] VITALS: BP 122/67; PULSE 75; RESP 18; TEMP 36.16956; O2SAT 96
[2024-02-22] MEDS: SODIUM CHLORIDE 0.9% 1,000 ML IV SCH (20:30)
[2024-02-22] MEDS: MORPHINE SULFATE 2 MG/ML INJ (NOT FOR IM USE) IV PRN (20:30)
[2024-02-22] MEDS: LORAZEPAM 1MG TABLET PO PRN (21:36)
[2024-02-22] MEDS: ONDANSETRON HCL 4MG/2ML INJ IV PRN (22:51)
[2024-02-23 04:00] VITALS: BP 157/64; PULSE 76; RESP 18; TEMP 36.114; O2SAT 98
[2024-02-23 06:58] LABS: CHLORIDE 110 mEq/L (98-107); POTASSIUM 3.9 mEq/L (3.5-5.1); SODIUM 140 mEq/L (136-145)
[2024-02-23 06:59] LABS: CALCIUM 8.4 mg/dL (8.7-10.4); CARBON DIOXIDE 23 mEq/L (21-32)
[2024-02-23 07:04] LABS: CREATININE 0.7 mg/dL (0.6-1.0); GLUCOSE 80 mg/dL (70-105)
[2024-02-23 07:06] LABS: ALANINE AMINOTRANSFERASE 29 IU/L (10-49); ALBUMIN 3.7 g/dL (3.2-4.8); ASPARTATE AMINOTRANSFERASE 43 IU/L (<34); BILIRUBIN TOTAL 0.2 mg/dL (0.1-1.0)
[2024-02-23 07:07] LABS: PROTEIN TOTAL 5.8 g/dL (6.0-8.3)
[2024-02-23 07:12] LABS: BASOPHILS % 0.4 % (0.0-2.0); EOSINOPHILS % 1.2 % (0.0-5.0); HEMATOCRIT. 37.2 % (36.0-48.0); HEMOGLOBIN. 11.6 g/dL (12.0-16.0); LYMPHOCYTES % 47.8 % (20.0-50.0); MEAN CORPUSCULAR HEMOGLOBIN 25.1 pg (28.0-32.0); MEAN CORPUSCULAR HGB CONC 31.3 g/dL (31.0-37.0); MEAN CORPUSCULAR VOLUME 80.2 fL (81.0-99.0); MEAN PLATELET VOLUME 8.5 fl (7.4-10.4); MONOCYTES % 8.2 % (2.0-8.0); NEUTROPHILS % 42.4 % (40.0-76.0); PLATELET 274 x1000/uL (130-400); RED BLOOD CELL COUNT 4.64 mill/uL (4.2-5.4); RED CELL DISTRIBUTION WIDTH 16.1 % (11.6-14.6); WHITE BLOOD COUNT 3.8 x1000/uL (4.5-11.0)
[2024-02-23 07:16] LABS: UREA NITROGEN BLOOD 6 mg/dL (9-23)
[2024-02-23 08:00] VITALS: BP 132/75; PULSE 84; RESP 18; TEMP 36.6696; O2SAT 100
[2024-02-23] MEDS: PANTOPRAZOLE SODIUM 40 MG/VIAL IV SCH (09:08)
[2024-02-23 09:11] LABS: BILIRUBIN DIRECT < 0.1 mg/dL (<=3.0)
[2024-02-23] MEDS: HYDROCODONE/ACETAMINOPHEN 5/325MG TABLET PO PRN (09:30)
[2024-02-23 12:00] VITALS: BP 135/78; PULSE 82; RESP 19; TEMP 37.44744; O2SAT 100
[2024-02-23 16:00] VITALS: BP 145/86; PULSE 78; RESP 20; TEMP 37.11408; O2SAT 100
[2024-02-23 20:00] VITALS: BP 132/82; PULSE 70; RESP 19; TEMP 36.72516; O2SAT 98
[2024-02-23 20:43] VITALS: PULSE 78; RESP 20; O2SAT 98
[2024-02-23] MEDS: IPRATROPIUM/ALBUTEROL 0.5-3(2.5)MG/3ML NEB NEB PRN (20:43)
[2024-02-23] MEDS ORDERED: GUAIFENESIN-DM 200MG-20MG/10ML UDC PO PRN (23:00)
[2024-02-24] VITALS: BP 128/80; PULSE 72; RESP 18; TEMP 36.78072; O2SAT 99
[2024-02-24 04:00] VITALS: BP 134/95; PULSE 75; RESP 17; TEMP 36.55848; O2SAT 100
[2024-02-24 08:00] VITALS: BP 142/81; PULSE 78; RESP 20; TEMP 36.61404; O2SAT 99
[2024-02-24 12:00] VITALS: BP 134/85; PULSE 81; RESP 20; TEMP 36.55848; O2SAT 97
[2024-02-24] MEDS: ALBUTEROL 6.7GM HFA INHALER ORI PRN (15:05)
[2024-02-24 16:00] VITALS: BP 120/65; PULSE 85; RESP 19; TEMP 36.22512; O2SAT 99
[2024-02-24 20:00] VITALS: BP 135/82; PULSE 79; RESP 20; TEMP 36.28068; O2SAT 99
[2024-02-25] VITALS: BP 136/79; PULSE 83; RESP 20; TEMP 36.33624; O2SAT 98
[2024-02-25 04:00] VITALS: BP 136/82; PULSE 82; RESP 20; TEMP 36.22512; O2SAT 99
[2024-02-25 08:00] VITALS: BP 124/83; PULSE 81; RESP 18; TEMP 36.00288; O2SAT 100
[2024-02-25 12:00] VITALS: BP 128/78; PULSE 88; RESP 17; TEMP 35.89176; O2SAT 100
[2024-02-25] MEDS: LORAZEPAM 2MG/ML INJ IV NR (13:53)
[2024-02-25] MEDS: LEVETIRACETAM 500MG PREMIX 100 ML IV SCH (14:23)
[2024-02-25] MEDS: SUMATRIPTAN SUCCINATE 25MG TABLET PO NR (14:24)
[2024-02-25 16:00] VITALS: BP 142/85; PULSE 92; RESP 17; TEMP 35.66952; O2SAT 100
[2024-02-25 18:21] LABS: CHLORIDE 105 mEq/L (98-107); POTASSIUM 4.5 mEq/L (3.5-5.1); SODIUM 139 mEq/L (136-145)
[2024-02-25 18:22] LABS: CARBON DIOXIDE 31 mEq/L (21-32)
[2024-02-25 18:23] LABS: CALCIUM 9.4 mg/dL (8.7-10.4)
[2024-02-25 18:27] LABS: GLUCOSE 92 mg/dL (70-105)
[2024-02-25 18:28] LABS: UREA NITROGEN BLOOD 9 mg/dL (9-23)
[2024-02-25 18:30] LABS: PHOSPHORUS 2.8 mg/dL (2.5-4.9)
[2024-02-25 20:00] VITALS: BP 111/64; PULSE 18; PULSE 85; RESP 18; TEMP 37.11408; O2SAT 100
[2024-02-25] MEDS ORDERED: LEVETIRACETAM 500MG PREMIX 100 ML IV SCH (21:00)
[2024-02-26] VITALS: BP 136/89; PULSE 80; RESP 20; TEMP 36.72516; O2SAT 99
[2024-02-26] MEDS: LORAZEPAM 2MG/ML INJ IV PRN (05:05)
[2024-02-26 08:00] VITALS: BP 150/90; PULSE 86; RESP 20; TEMP 36.6696; O2SAT 99
[2024-02-26] MEDS: FAMOTIDINE 20MG/2ML VIAL IV SCH (11:00)
[2024-02-26] MEDS ORDERED: KEPP500 MT (11:04)
[2024-02-26 12:00] VITALS: BP 126/64; PULSE 81; RESP 18; TEMP 36.6696; O2SAT 100
[2024-02-26 14:36] VITALS: BP 150/90; PULSE 86; TEMP 98; O2SAT 99
[2024-02-26] MEDS ORDERED: SUMATRIPTAN SUCCINATE 25MG TABLET PO PRN (15:00)
[2024-02-26 16:00] VITALS: BP 126/64; PULSE 81; RESP 18; TEMP 36.6696; TEMP 36.66960; O2SAT 100
[2024-02-26] MEDS: SUMATRIPTAN SUCCINATE 25MG TABLET PO NR (16:02)
== END 2024-02-26 18:35 | disposition home or self-care (01) | DRG 137 ==
LOC: ER 20:29 → 5WST 02-22 00:08 → 6WST 02-22 16:46
PROVIDERS: ADMIT Internal Medicine; ATTEND Internal Medicine
DX: U07.1 COVID-19 (principal); J96.01 Acute respiratory failure with hypoxia; D63.8 Anemia in other chronic diseases classified elsewhere; D57.1 Sickle-cell disease without crisis; E86.0 Dehydration; J40 Bronchitis, not specified as acute or chronic; G43.909 Migraine, unspecified, not intractable, without status migrainosus; N18.9 Chronic kidney disease, unspecified; G40.909 Epilepsy, unspecified, not intractable, without status epilepticus; Z88.6 Allergy status to analgesic agent; Z79.899 Other long term (current) drug therapy; Z88.0 Allergy status to penicillin; Z88.8 Allergy status to other drugs, medicaments and biological substances
CPT/HCPCS: 36415; 71045; 80048; 80076; 82962; 83735; 84100; 84145; 85025; 87426; 94640; 99291; C1893; J1650; J1885; J1953; J2060; J2270; J2405; J2470; J3490; J7030

== ENCOUNTER 2024-08-02 09:02 | Emergency (ER) | payer OTHER ==
[~2024-08-02] VITALS: Ht 162.6 cm; Wt 74.0 kg
[~2024-08-02 09:02] MED LIST changes: -ACET-2708 MT; -ACET-3163 MT; +AMIT150T PO; +CARB100C9 PO; +HYOS-21 SL; -HYOS-27 SL; +KEPP500 MT; +VERA180C2 PO
[2024-08-02 09:28] VITALS: O2SAT 98
[2024-08-02] MEDS: LIDOCAINE 5% PATCH TOP SCH (11:54)
[2024-08-02] MEDS ORDERED: LIDO700A15 TP (12:30)
[2024-08-02] MEDS ORDERED: TOPUD MT (12:30)
[2024-08-02 13:39] VITALS: BP 156/64; PULSE 87; RESP 18; TEMP 36.89184; O2SAT 100
[2024-08-02] MEDS: HYDROCODONE/ACETAMINOPHEN 5/325MG TABLET PO ONE (13:39)
== END 2024-08-02 13:42 | disposition home or self-care (01) ==
LOC: ER 09:02
DX: R60.0 Localized edema (principal); F31.9 Bipolar disorder, unspecified; Z88.0 Allergy status to penicillin; Z88.2 Allergy status to sulfonamides; Z88.6 Allergy status to analgesic agent; Z79.899 Other long term (current) drug therapy; Z86.59 Personal history of other mental and behavioral disorders; Z98.890 Other specified postprocedural states
CPT/HCPCS: 81025; 93971; 99284

== ENCOUNTER 2024-09-05 17:42 | Emergency (ER) | payer OTHER ==
[~2024-09-05] VITALS: Ht 167.6 cm; Wt 75.0 kg
[2024-09-05 17:56] VITALS: TEMP 36.9; O2SAT 100
[2024-09-05] MEDS ORDERED: ACET-2708 MT (18:56)
[2024-09-05] MEDS: OXYCODONE HCL/ACETAMINOPHEN 5/325MG TABLET PO ONE (19:00)
[2024-09-05 20:10] VITALS: BP 125/76; PULSE 88; RESP 17; O2SAT 99
== END 2024-09-05 20:14 | disposition home or self-care (01) ==
LOC: ER 17:51
DX: S92.355A Nondisplaced fracture of fifth metatarsal bone, left foot, initial encounter for closed fracture (principal); G40.909 Epilepsy, unspecified, not intractable, without status epilepticus; G89.11 Acute pain due to trauma; Z79.899 Other long term (current) drug therapy; Z88.0 Allergy status to penicillin; Z88.6 Allergy status to analgesic agent; W10.9XXA Fall (on) (from) unspecified stairs and steps, initial encounter; Y93.89 Activity, other specified; Y92.89 Other specified places as the place of occurrence of the external cause; Y99.8 Other external cause status
CPT/HCPCS: 29515; 73610; 73620; 99284

== ENCOUNTER 2024-09-07 13:47 | Inpatient (IN) | payer OTHER ==
[~2024-09-07] VITALS: Ht 167.6 cm; Wt 73.0 kg
[~2024-09-07 13:47] MED LIST changes: +ACET-2708 MT
[2024-09-07] MEDS ORDERED: OXYC-100 MT ×2 (15:27→16:13)
[2024-09-07] MEDS: OXYCODONE HCL/ACETAMINOPHEN 5/325MG TABLET PO ONE (17:01)
[2024-09-07 17:44] LABS: BASOPHILS % 0.3 % (0.0-2.0); DIFFERENTIAL COMMENT 0; EOSINOPHILS % 2.2 % (0.0-5.0); HEMATOCRIT. 41.2 % (36.0-48.0); HEMOGLOBIN. 12.9 g/dL (12.0-16.0); LYMPHOCYTES % 36.5 % (20.0-50.0); MEAN CORPUSCULAR HEMOGLOBIN 24.7 pg (28.0-32.0); MEAN CORPUSCULAR HGB CONC 31.3 g/dL (31.0-37.0); MEAN PLATELET VOLUME 8.1 fl (7.4-10.4); PLATELET 283 x1000/uL (130-400); RED BLOOD CELL COUNT 5.21 mill/uL (4.2-5.4); RED CELL DISTRIBUTION WIDTH 15.3 % (11.6-14.6); WHITE BLOOD COUNT 6.7 x1000/uL (4.5-11.0)
[2024-09-07 17:49] LABS: CHLORIDE 102 mEq/L (98-107); POTASSIUM 3.9 mEq/L (3.5-5.1); SODIUM 140 mEq/L (136-145)
[2024-09-07 17:50] LABS: CARBON DIOXIDE 29 mEq/L (21-32)
[2024-09-07 17:51] LABS: CALCIUM 9.3 mg/dL (8.7-10.4)
[2024-09-07 17:55] LABS: CREATININE 0.9 mg/dL (0.6-1.0); GLUCOSE 95 mg/dL (70-105); UREA NITROGEN BLOOD 8 mg/dL (9-23)
[2024-09-07 17:57] LABS: LACTATE DEHYDROGENASE 217 IU/L (120-246)
[2024-09-07 17:58] LABS: INR 0.9; PROTHROMBIN TIME 9.8 sec (9.6-11.0)
[2024-09-07] MEDS ORDERED: NALOXONE HCL 0.4MG/ML VIAL IV PRN (19:45)
[2024-09-07] MEDS: MORPHINE SULFATE 2 MG/ML INJ (NOT FOR IM USE) IV PRN (21:22)
[2024-09-07 22:20] VITALS: BP 104/68; PULSE 78; RESP 20; TEMP 36.3
[2024-09-07] MEDS ORDERED: IPRATROPIUM/ALBUTEROL 0.5-3(2.5)MG/3ML NEB NEB PRN (23:45)
[2024-09-07] MEDS ORDERED: ONDANSETRON HCL 4MG/2ML INJ IV PRN (23:45)
[2024-09-07] MEDS ORDERED: ZOLPIDEM TARTRATE 5MG TABLET PO PRN (23:45)
[2024-09-07] MEDS ORDERED: CLONIDINE 0.1MG TABLET PO PRN (23:45)
[2024-09-07] MEDS ORDERED: ACETAMINOPHEN 325MG TABLET PO PRN (23:45)
[2024-09-08] VITALS: BP 104/68; PULSE 78; RESP 20; TEMP 36.3; O2SAT 100
[2024-09-08 04:00] VITALS: BP 115/62; PULSE 78; RESP 19; TEMP 36.3; O2SAT 100
[2024-09-08] MEDS: HYDROCODONE/ACETAMINOPHEN 5/325MG TABLET PO PRN (06:43)
[2024-09-08 08:00] VITALS: BP 108/69; PULSE 78; RESP 18; TEMP 37.2; O2SAT 99
[2024-09-08] MEDS: ENOXAPARIN 40MG/0.4ML SYR SUBCUT SCH (09:40)
[2024-09-08 10:15] LABS: *AMPHETAMINES SCREEN URINE NEGATIVE (NEGATIVE); *BARBITURATES SCREEN URINE NEGATIVE (NEGATIVE); *BENZODIAZEPINES SCREEN URINE PRESUMPTIVE POSITIVE (NEGATIVE); *COCAINE SCREEN URINE NEGATIVE (NEGATIVE); CANNABINOID URINE SCREEN PRESUMPTIVE POSITIVE (NEGATIVE); ECSTASY MDMA SCREEN URINE NEGATIVE (NEGATIVE); METHADONE URINE SCREEN NEGATIVE (NEGATIVE); OPIATES URINE SCREEN PRESUMPTIVE POSITIVE (NEGATIVE); PHENCYCLIDINE URINE SCREEN NEGATIVE (NEGATIVE)
[2024-09-08 12:00] VITALS: BP 117/70; PULSE 75; RESP 19; TEMP 37; O2SAT 99
[2024-09-08 12:35] LABS: BASOPHILS % 0.3 % (0.0-2.0); DIFFERENTIAL COMMENT 0; EOSINOPHILS % 3.2 % (0.0-5.0); HEMATOCRIT. 38.8 % (36.0-48.0); LYMPHOCYTES % 34.2 % (20.0-50.0); MEAN CORPUSCULAR HGB CONC 31.1 g/dL (31.0-37.0); MEAN CORPUSCULAR VOLUME 77.3 fL (81.0-99.0); MEAN PLATELET VOLUME 8.1 fl (7.4-10.4); MONOCYTES % 5.6 % (2.0-8.0); NEUTROPHILS % 56.7 % (40.0-76.0); PLATELET 282 x1000/uL (130-400); RED BLOOD CELL COUNT 5.02 mill/uL (4.2-5.4); RED CELL DISTRIBUTION WIDTH 15.1 % (11.6-14.6); WHITE BLOOD COUNT 5.9 x1000/uL (4.5-11.0)
[2024-09-08 12:39] LABS: CARBON DIOXIDE 29 mEq/L (21-32); CHLORIDE 102 mEq/L (98-107); POTASSIUM 3.6 mEq/L (3.5-5.1); SODIUM 139 mEq/L (136-145)
[2024-09-08 12:41] LABS: CALCIUM 9.5 mg/dL (8.7-10.4)
[2024-09-08 12:45] LABS: CREATININE 0.9 mg/dL (0.6-1.0); GLUCOSE 83 mg/dL (70-105); UREA NITROGEN BLOOD 10 mg/dL (9-23)
[2024-09-08 16:00] VITALS: BP_SYST 121; PULSE 70; RESP 19; TEMP 36.8; O2SAT 99
[2024-09-08] MEDS: CARBAMAZEPINE 100MG TABLET CHEW PO SCH (17:30)
[2024-09-08 20:00] VITALS: BP 120/75; PULSE 95; RESP 18; TEMP 36.2; O2SAT 99
[2024-09-08] MEDS: LEVETIRACETAM 500MG TABLET PO SCH (20:43)
[2024-09-08] MEDS: QUETIAPINE FUMARATE 50MG TABLET PO SCH (20:45)
[2024-09-08] MEDS: VERAPAMIL HCL 80 MG TABLET PO SCH (22:55)
[2024-09-08] MEDS: AMITRIPTYLINE 25MG TABLET PO SCH (22:55)
[2024-09-09 04:00] VITALS: BP 102/62; PULSE 82; RESP 18; TEMP 36.3; O2SAT 99
[2024-09-09 07:01] LABS: BASOPHILS % 0.5 % (0.0-2.0); DIFFERENTIAL COMMENT 0; EOSINOPHILS % 3.7 % (0.0-5.0); HEMATOCRIT. 38.2 % (36.0-48.0); HEMOGLOBIN. 12.4 g/dL (12.0-16.0); LYMPHOCYTES % 43.1 % (20.0-50.0); MEAN CORPUSCULAR HEMOGLOBIN 25.2 pg (28.0-32.0); MEAN CORPUSCULAR HGB CONC 32.4 g/dL (31.0-37.0); MEAN CORPUSCULAR VOLUME 77.9 fL (81.0-99.0); MEAN PLATELET VOLUME 8.4 fl (7.4-10.4); MONOCYTES % 6.7 % (2.0-8.0); PLATELET 286 x1000/uL (130-400); RED BLOOD CELL COUNT 4.91 mill/uL (4.2-5.4); RED CELL DISTRIBUTION WIDTH 14.9 % (11.6-14.6); WHITE BLOOD COUNT 5.6 x1000/uL (4.5-11.0)
[2024-09-09 07:07] LABS: CARBON DIOXIDE 30 mEq/L (21-32); CHLORIDE 104 mEq/L (98-107); POTASSIUM 3.9 mEq/L (3.5-5.1); SODIUM 140 mEq/L (136-145)
[2024-09-09 07:08] LABS: CALCIUM 9.5 mg/dL (8.7-10.4)
[2024-09-09 07:11] LABS: CREATININE 0.8 mg/dL (0.6-1.0)
[2024-09-09 07:13] LABS: GLUCOSE 88 mg/dL (70-105); UREA NITROGEN BLOOD 13 mg/dL (9-23)
[2024-09-09 08:00] VITALS: BP 116/71; PULSE 84; RESP 18; TEMP 35.9; O2SAT 98
[2024-09-09 12:00] VITALS: BP 111/73; PULSE 89; RESP 19; TEMP 36.2; O2SAT 100
[2024-09-09 16:00] VITALS: BP 108/70; PULSE 81; RESP 20; TEMP 36.4; O2SAT 100
[2024-09-09 20:00] VITALS: BP 118/74; PULSE 93; RESP 18; TEMP 36.5; O2SAT 96
[2024-09-10] VITALS: BP 130/80; PULSE 82; RESP 20; TEMP 36.2; O2SAT 99
[2024-09-10 06:00] VITALS: BP 104/68; PULSE 87; RESP 20; TEMP 36.1; O2SAT 98
[2024-09-10 07:25] LABS: BASOPHILS % 0.3 % (0.0-2.0); DIFFERENTIAL COMMENT 0; EOSINOPHILS % 2.2 % (0.0-5.0); HEMATOCRIT. 38.2 % (36.0-48.0); HEMOGLOBIN. 12.3 g/dL (12.0-16.0); LYMPHOCYTES % 34.2 % (20.0-50.0); MEAN CORPUSCULAR HEMOGLOBIN 25.3 pg (28.0-32.0); MEAN CORPUSCULAR HGB CONC 32.1 g/dL (31.0-37.0); MEAN CORPUSCULAR VOLUME 78.7 fL (81.0-99.0); MEAN PLATELET VOLUME 8.1 fl (7.4-10.4); MONOCYTES % 7.3 % (2.0-8.0); PLATELET 296 x1000/uL (130-400); RED BLOOD CELL COUNT 4.85 mill/uL (4.2-5.4); RED CELL DISTRIBUTION WIDTH 15.3 % (11.6-14.6); WHITE BLOOD COUNT 6.9 x1000/uL (4.5-11.0)
[2024-09-10 07:35] LABS: CALCIUM 9.7 mg/dL (8.7-10.4); CHLORIDE 102 mEq/L (98-107); POTASSIUM 3.7 mEq/L (3.5-5.1); SODIUM 140 mEq/L (136-145)
[2024-09-10 07:36] LABS: CARBON DIOXIDE 30 mEq/L (21-32)
[2024-09-10 07:41] LABS: CREATININE 0.9 mg/dL (0.6-1.0); GLUCOSE 89 mg/dL (70-105); UREA NITROGEN BLOOD 11 mg/dL (9-23)
[2024-09-10 08:00] VITALS: BP 99/62; PULSE 88; RESP 20; TEMP 36.1; O2SAT 98
[2024-09-10 12:00] VITALS: BP 108/73; PULSE 93; RESP 19; TEMP 36.2; O2SAT 98
[2024-09-10] MEDS ORDERED: HYDR-4009 PO (12:40)
[2024-09-10 13:36] VITALS: RESP 19
[2024-09-10 15:04] VITALS: BP 108/73; PULSE 93; TEMP 97.2; O2SAT 98
== END 2024-09-10 15:30 | disposition home health service (06) | DRG 342 ==
LOC: ER 13:47 → EDBEDREQ 20:48 → 8EST 22:57
PROVIDERS: ADMIT Internal Medicine; ATTEND Internal Medicine
DX: S92.352A Displaced fracture of fifth metatarsal bone, left foot, initial encounter for closed fracture (principal); F11.20 Opioid dependence, uncomplicated; F20.9 Schizophrenia, unspecified; F31.9 Bipolar disorder, unspecified; G40.909 Epilepsy, unspecified, not intractable, without status epilepticus; W18.39XA Other fall on same level, initial encounter; G62.9 Polyneuropathy, unspecified; G89.29 Other chronic pain; I10 Essential (primary) hypertension; Z88.0 Allergy status to penicillin; Z88.6 Allergy status to analgesic agent; Z88.8 Allergy status to other drugs, medicaments and biological substances; Y93.89 Activity, other specified; Y92.89 Other specified places as the place of occurrence of the external cause; Y99.8 Other external cause status
CPT/HCPCS: 36415; 73700; 80048; 80305; 83615; 85025; 86850; 86900; 93970; 97162; 99285; C1893; J1650; J2270

== ENCOUNTER 2024-11-09 08:04 | Emergency (ER) | payer MEDICAID, OTHER ==
[~2024-11-09] VITALS: Ht 162.6 cm; Wt 68.0 kg
[~2024-11-09 08:04] MED LIST changes: -ACET-2708 MT; -AMIT150T PO; -HYOS-21 SL; -ONDA4TAB50 MT
[2024-11-09 08:06] VITALS: TEMP 37.4; O2SAT 100
[2024-11-09] MEDS: METHOCARBAMOL 500MG TABLET PO ONE (08:45)
[2024-11-09] MEDS: TRAMADOL 50MG TABLET PO ONE (08:45)
[2024-11-09 08:59] LABS: CLARITY URINE CLEAR (CLEAR); COLOR URINE YELLOW (YELLOW); PH URINE 6.5 (4.5-8.0); SPECIFIC GRAVITY URINE 1.007 (1.005-1.030)
[2024-11-09 08:59] LABS: BASOPHILS % 0.7 % (0.0-2.0); DIFFERENTIAL COMMENT 0; EOSINOPHILS % 1.1 % (0.0-5.0); HEMATOCRIT. 36.5 % (36.0-48.0); HEMOGLOBIN. 11.5 g/dL (12.0-16.0); LYMPHOCYTES % 23.1 % (20.0-50.0); MEAN CORPUSCULAR HEMOGLOBIN 25.2 pg (28.0-32.0); MEAN CORPUSCULAR HGB CONC 31.6 g/dL (31.0-37.0); MEAN CORPUSCULAR VOLUME 79.6 fL (81.0-99.0); MEAN PLATELET VOLUME 8.4 fl (7.4-10.4); MONOCYTES % 5.2 % (2.0-8.0); NEUTROPHILS % 69.9 % (40.0-76.0); PLATELET 279 x1000/uL (130-400); RED BLOOD CELL COUNT 4.58 mill/uL (4.2-5.4); RED CELL DISTRIBUTION WIDTH 16.7 % (11.6-14.6); WHITE BLOOD COUNT 8.9 x1000/uL (4.5-11.0)
[2024-11-09 09:00] LABS: GLUCOSE URINE NEGATIVE (NEGATIVE); KETONES URINE NEGATIVE (NEGATIVE); LEUKOCYTE ESTERASE URINE NEGATIVE (NEGATIVE); NITRITE URINE NEGATIVE (NEGATIVE); OCCULT BLOOD URINE NEGATIVE (NEGATIVE); PROTEIN URINE NEGATIVE (NEGATIVE)
[2024-11-09 09:09] LABS: CHLORIDE 105 mEq/L (98-107); POTASSIUM 3.9 mEq/L (3.5-5.1); SODIUM 140 mEq/L (136-145)
[2024-11-09 09:10] LABS: CARBON DIOXIDE 25 mEq/L (21-32)
[2024-11-09 09:11] LABS: CALCIUM 9.2 mg/dL (8.7-10.4)
[2024-11-09 09:15] LABS: GLUCOSE 107 mg/dL (70-105)
[2024-11-09 09:16] LABS: UREA NITROGEN BLOOD 13 mg/dL (9-23)
[2024-11-09 09:17] LABS: ALANINE AMINOTRANSFERASE 11 IU/L (10-49); ASPARTATE AMINOTRANSFERASE 13 IU/L (<34)
[2024-11-09 09:18] LABS: BILIRUBIN DIRECT 0.1 mg/dL (<=3.0); BILIRUBIN TOTAL 0.3 mg/dL (0.1-1.0); PROTEIN TOTAL 6.6 g/dL (6.0-8.3)
[2024-11-09 09:36] VITALS: BP 148/85; PULSE 95; RESP 18
[2024-11-09] MEDS: OXYCODONE HCL/ACETAMINOPHEN 5/325MG TABLET PO ONE (09:36)
[2024-11-09] MEDS ORDERED: OXYC-100 MT (11:11)
[2024-11-09] MEDS ORDERED: METH-653 MT (11:11)
== END 2024-11-09 11:39 | disposition home or self-care (01) ==
LOC: ER 08:04
DX: D57.00 Hb-SS disease with crisis, unspecified (principal); I25.2 Old myocardial infarction; Z98.890 Other specified postprocedural states; Z79.899 Other long term (current) drug therapy; Z88.0 Allergy status to penicillin; Z88.6 Allergy status to analgesic agent
CPT/HCPCS: 36415; 74176; 80048; 80076; 81003; 85025; 85044; 99284

== ENCOUNTER 2025-01-24 20:09 | Emergency (ER) | payer MEDICAID, OTHER ==
[~2025-01-24] VITALS: Ht 165.1 cm; Wt 68.0 kg
[~2025-01-24 20:09] MED LIST changes: -HYDR-4009 PO; +LEVO250T74 MT; +LIDO-53 TP; -LIDO700A15 TP; +METH-653 MT
[2025-01-24 20:16] VITALS: TEMP 36.8; O2SAT 98
[2025-01-24] MEDS ORDERED: P50 MT (22:18)
[2025-01-24] MEDS ORDERED: TOPUD MT (22:18)
[2025-01-24] MEDS: PREDNISONE 20MG TABLET PO ONE (22:19)
[2025-01-24] MEDS: HYDROCODONE/ACETAMINOPHEN 5/325MG TABLET PO ONE (22:21)
[2025-01-24 22:59] VITALS: BP 110/84; PULSE 81; RESP 16; O2SAT 97
== END 2025-01-24 23:08 | disposition home or self-care (01) ==
LOC: ER 20:09
DX: M54.9 Dorsalgia, unspecified (principal); M06.9 Rheumatoid arthritis, unspecified; I10 Essential (primary) hypertension; Z79.899 Other long term (current) drug therapy; Z88.6 Allergy status to analgesic agent; Z88.0 Allergy status to penicillin
CPT/HCPCS: 99283; 72100; J7512; 99285

== ENCOUNTER 2025-02-01 07:28 | Inpatient (IN) | payer OTHER ==
[~2025-02-01] VITALS: Ht 162.6 cm; Wt 69.5 kg
[~2025-02-01 07:28] MED LIST changes: +P50 MT
[2025-02-01 08:20] LABS: BASOPHILS % 0.4 % (0.0-2.0); EOSINOPHILS % 0.8 % (0.0-5.0); HEMATOCRIT. 39.4 % (36.0-48.0); HEMOGLOBIN. 12.6 g/dL (12.0-16.0); LYMPHOCYTES % 21.2 % (20.0-50.0); MEAN PLATELET VOLUME 7.9 fl (7.4-10.4); MONOCYTES % 4.9 % (2.0-8.0); NEUTROPHILS % 72.7 % (40.0-76.0); PLATELET 268 x1000/uL (130-400); RED BLOOD CELL COUNT 4.93 mill/uL (4.2-5.4); RED CELL DISTRIBUTION WIDTH 14.3 % (11.6-14.6)
[2025-02-01] MEDS: MORPHINE SULFATE 4 MG/ML INJ (FOR IV/IM USE) IV ONE (08:30)
[2025-02-01 08:38] LABS: CREATININE 1.1 mg/dL (0.6-1.0)
[2025-02-01 08:39] LABS: UREA NITROGEN BLOOD 13 mg/dL (9-23)
[2025-02-01 09:50] VITALS: BP 142/81; PULSE 96; RESP 17; TEMP 36.1956
[2025-02-01] MEDS ORDERED: ACETAMINOPHEN 325MG TABLET PO PRN (10:45)
[2025-02-01] MEDS ORDERED: ZOLPIDEM TARTRATE 5MG TABLET PO PRN (10:45)
[2025-02-01] MEDS ORDERED: IPRATROPIUM/ALBUTEROL 0.5-3(2.5)MG/3ML NEB NEB PRN (10:45)
[2025-02-01] MEDS ORDERED: HYDROCODONE/ACETAMINOPHEN 5/325MG TABLET PO PRN (10:45)
[2025-02-01] MEDS ORDERED: LEVETIRACETAM 500MG TABLET PO SCH (10:45)
[2025-02-01] MEDS ORDERED: MAGNESIUM/ALUMINUM HYDROXIDE/SIMETHICONE 30ML UDC PO PRN (10:45)
[2025-02-01] MEDS ORDERED: ONDANSETRON HCL 4MG/2ML INJ IV PRN (10:45)
[2025-02-01] MEDS ORDERED: CLONIDINE 0.1MG TABLET PO PRN (10:45)
[2025-02-01] MEDS ORDERED: METHOCARBAMOL 750MG TABLET PO PRN (11:00)
[2025-02-01] MEDS ORDERED: NALOXONE HCL 0.4MG/ML VIAL IV PRN (11:00)
[2025-02-01] MEDS: ENOXAPARIN 40MG/0.4ML SYR SUBCUT SCH (11:14)
[2025-02-01] MEDS: PANTOPRAZOLE SODIUM 40 MG/VIAL IV SCH (11:14)
[2025-02-01] MEDS: MORPHINE SULFATE 2 MG/ML INJ (NOT FOR IM USE) IV PRN (11:15)
[2025-02-01] MEDS: AMLODIPINE 5MG TABLET PO SCH (11:17)
[2025-02-01 12:00] VITALS: BP 142/81; PULSE 96; RESP 17; TEMP 36.2; O2SAT 99
[2025-02-01] MEDS: QUETIAPINE FUMARATE 50MG TABLET PO SCH (12:51)
[2025-02-01] MEDS: QUETIAPINE FUMARATE 200MG TABLET PO SCH (12:52)
[2025-02-01 16:00] VITALS: BP 96/56; PULSE 71; RESP 18; TEMP 36.1; O2SAT 98
[2025-02-01 17:05] LABS: CLARITY URINE TURBID (CLEAR); COLOR URINE YELLOW (YELLOW); GLUCOSE URINE NEGATIVE (NEGATIVE); KETONES URINE NEGATIVE (NEGATIVE); LEUKOCYTE ESTERASE URINE 3+ (NEGATIVE); NITRITE URINE NEGATIVE (NEGATIVE); OCCULT BLOOD URINE 1+ (NEGATIVE); PH URINE 7.5 (4.5-8.0); PROTEIN URINE 1+ (NEGATIVE); SPECIFIC GRAVITY URINE 1.011 (1.005-1.030); UROBILINOGEN URINE 1.0 E.U./dL (0.2-1.0)
[2025-02-01 17:18] LABS: BACTERIA URINE 4+; SQUAMOUS EPITHELIAL CELL URINE 3+ /lpf (RARE/1+)
[2025-02-01 17:19] LABS: WBC URINE 15-25 /hpf (0-2)
[2025-02-01 17:30] LABS: *AMPHETAMINES SCREEN URINE NEGATIVE (NEGATIVE); *BARBITURATES SCREEN URINE NEGATIVE (NEGATIVE); *BENZODIAZEPINES SCREEN URINE NEGATIVE (NEGATIVE); *COCAINE SCREEN URINE NEGATIVE (NEGATIVE); CANNABINOID URINE SCREEN PRESUMPTIVE POSITIVE (NEGATIVE); ECSTASY MDMA SCREEN URINE NEGATIVE (NEGATIVE); METHADONE URINE SCREEN NEGATIVE (NEGATIVE); OPIATES URINE SCREEN PRESUMPTIVE POSITIVE (NEGATIVE); PHENCYCLIDINE URINE SCREEN NEGATIVE (NEGATIVE)
[2025-02-01 17:42] LABS: HEPATITIS C AB NON REACTIVE (Neg) (Negative)
[2025-02-01] MEDS: CARBAMAZEPINE 100MG TABLET CHEW PO SCH (18:16)
[2025-02-01 20:00] VITALS: BP 104/71; PULSE 88; RESP 20; TEMP 36.1; O2SAT 100
[2025-02-01] MEDS: AMITRIPTYLINE 25MG TABLET PO SCH (21:44)
[2025-02-02] VITALS: BP 126/68; PULSE 86; RESP 20; TEMP 36.7; O2SAT 100
[2025-02-02] MEDS: LEVOFLOXACIN 250MG TABLET PO SCH (01:08)
[2025-02-02 04:00] VITALS: BP_SYST 126; BP_SYST 146; BP_DIAS 68; BP_DIAS 82; PULSE 86; PULSE 92; RESP 20; RESP 21; TEMP 36.5; TEMP 36.7; O2SAT 100; O2SAT 99
[2025-02-02 08:00] VITALS: BP 148/58; PULSE 80; RESP 17; TEMP 36.6; O2SAT 99
[2025-02-02 08:16] LABS: BASOPHILS % 0.3 % (0.0-2.0); EOSINOPHILS % 2.0 % (0.0-5.0); HEMATOCRIT. 38.8 % (36.0-48.0); HEMOGLOBIN. 12.5 g/dL (12.0-16.0); LYMPHOCYTES % 28.0 % (20.0-50.0); MEAN PLATELET VOLUME 8.0 fl (7.4-10.4); MONOCYTES % 8.0 % (2.0-8.0); NEUTROPHILS % 61.7 % (40.0-76.0); PLATELET 273 x1000/uL (130-400); RED BLOOD CELL COUNT 4.87 mill/uL (4.2-5.4); RED CELL DISTRIBUTION WIDTH 14.3 % (11.6-14.6)
[2025-02-02 08:19] LABS: CREATININE 1.2 mg/dL (0.6-1.0); UREA NITROGEN BLOOD 14.0 mg/dL (9-23)
[2025-02-02] MEDS ORDERED: QUETIAPINE FUMARATE 50MG TABLET PO SCH (09:00)
[2025-02-02 12:00] VITALS: BP 121/67; PULSE 91; RESP 18; TEMP 36.4; O2SAT 97
[2025-02-02 16:00] VITALS: BP 108/63; PULSE 97; RESP 16; TEMP 36.1; O2SAT 99
[2025-02-02 20:00] VITALS: BP 106/56; PULSE 94; RESP 19; TEMP 36.1; O2SAT 99
[2025-02-03] VITALS: BP 114/66; PULSE 84; RESP 18; TEMP 35.7; O2SAT 98
[2025-02-03 04:00] VITALS: BP 127/55; PULSE 85; RESP 18; TEMP 36.6; O2SAT 98
[2025-02-03 07:35] LABS: BASOPHILS % 0.4 % (0.0-2.0); EOSINOPHILS % 2.6 % (0.0-5.0); HEMATOCRIT. 39.2 % (36.0-48.0); HEMOGLOBIN. 12.8 g/dL (12.0-16.0); LYMPHOCYTES % 34.1 % (20.0-50.0); MEAN PLATELET VOLUME 8.3 fl (7.4-10.4); MONOCYTES % 8.4 % (2.0-8.0); NEUTROPHILS % 54.5 % (40.0-76.0); PLATELET 257 x1000/uL (130-400); RED BLOOD CELL COUNT 4.88 mill/uL (4.2-5.4); RED CELL DISTRIBUTION WIDTH 14.1 % (11.6-14.6)
[2025-02-03 08:00] VITALS: BP 122/67; PULSE 99; RESP 16; TEMP 36.1; O2SAT 99
[2025-02-03 08:04] LABS: CREATININE 1.2 mg/dL (0.6-1.0); UREA NITROGEN BLOOD 14.0 mg/dL (9-23)
[2025-02-03] MEDS ORDERED: OXYC-105 MT (10:55)
[2025-02-03 12:00] VITALS: BP 104/64; PULSE 86; RESP 14; TEMP 36.5; O2SAT 96
[2025-02-03 13:06] VITALS: BP 104/64; PULSE 86; TEMP 97.7; O2SAT 96
== END 2025-02-03 13:50 | disposition home or self-care (01) | DRG 463 ==
LOC: ER 07:28 → 6WST 08:56 → EDBEDREQTM 08:58 → EDBEDREQ 08:58 → ENRESERV 09:06
PROVIDERS: ADMIT Internal Medicine; ATTEND Internal Medicine
DX: N39.0 Urinary tract infection, site not specified (principal); F31.9 Bipolar disorder, unspecified; M54.50 Low back pain, unspecified; F41.9 Anxiety disorder, unspecified; G40.909 Epilepsy, unspecified, not intractable, without status epilepticus; I10 Essential (primary) hypertension; M13.88 Other specified arthritis, other site; G89.29 Other chronic pain; G43.909 Migraine, unspecified, not intractable, without status migrainosus; Z88.0 Allergy status to penicillin; I25.2 Old myocardial infarction; Z88.6 Allergy status to analgesic agent; Z88.8 Allergy status to other drugs, medicaments and biological substances
CPT/HCPCS: 36415; 80048; 80305; 81003; 85025; 85044; 86705; 86850; 86900; 87340; 93970; 97116; 97162; 99285; J1650; J2270; J2470